=== PATIENT | male | born 1955 | race Native Hawaiian/Other Pacific Islander ===

== ENCOUNTER 2021-02-07 10:30 | Inpatient (IN) | payer OTHER ==
[2021-02-08 07:25] LABS: PLATELET COUNT 267 K/uL (142-355)
[2021-02-08 08:31] LABS: POTASSIUM 3.8 mmol/L (3.6-5.2)
== END 2021-02-21 10:30 | disposition home or self-care (01) ==
LOC: PAVC 10:30
PROVIDERS: ADMIT Internal Medicine; ATTEND Internal Medicine
DX: U07.1 COVID-19 (principal); M62.81 Muscle weakness (generalized); Z74.1 Need for assistance with personal care; R26.81 Unsteadiness on feet; I69.351 Hemiplegia and hemiparesis following cerebral infarction affecting right dominant side; I48.20 Chronic atrial fibrillation, unspecified
CPT/HCPCS: 80053; 80061; 80162; 82306; 82728; 83036; 83540; 84153; 84443; 85027; 87081

== ENCOUNTER 2021-02-19 07:07 | Outpatient (CLI) | payer OTHER | END 2021-02-19 19:20 | disposition home or self-care (01) | LOC: LAB 07:07 | PROVIDERS: ATTEND Internal Medicine | DX: I48.20 Chronic atrial fibrillation, unspecified (principal) | CPT/HCPCS: 80162 ==

== ENCOUNTER 2021-06-02 20:45 | Emergency (ER) | payer OTHER ==
[~2021-06-02] VITALS: Ht 180.3 cm; Wt 86.2 kg
[2021-06-02 21:00] VITALS: BP 130/81; TEMP 98.1
[2021-06-02 21:15] VITALS: BP 130/44
[2021-06-02 22:22] LABS: PLATELET COUNT 209 K/uL (142-355)
[2021-06-02 22:35] LABS: POTASSIUM 4.4 mmol/L (3.6-5.2)
[2021-06-02 22:50] VITALS: BP 100/45
[2021-06-02 23:30] VITALS: BP 101/52
[2021-06-03] VITALS: BP 103/49
[2021-06-03 00:30] VITALS: BP 107/71
[2021-06-03 01:10] VITALS: BP 82/54
[2021-06-03 01:30] VITALS: BP 118/49
[2021-06-03 01:39] LABS: PLATELET COUNT 202 K/uL (142-355)
[2021-06-03 03:45] LABS: PARTIAL THROMBOPLASTIN TIME > 192.0 SECONDS (24.5-33.6)
[2021-06-03 06:30] VITALS: BP 83/50; TEMP 97.9
== END 2021-06-03 06:54 | disposition short-term general hospital (02) ==
LOC: ED 20:45 → MED/SURG 06-03 00:12 → ED 06-03 06:54
PROVIDERS: Family Medicine
PROC: 0T9B70Z Drainage of Bladder with Drainage Device, Via Natural or Artificial Opening (ICD-10-PCS; principal; 2021-06-02)
PROC: 30233L1 Transfusion of Nonautologous Fresh Plasma into Peripheral Vein, Percutaneous Approach (ICD-10-PCS; 2021-06-02)
PROC: 30233N1 Transfusion of Nonautologous Red Blood Cells into Peripheral Vein, Percutaneous Approach (ICD-10-PCS; 2021-06-02)
PROC: 0BH17EZ Insertion of Endotracheal Airway into Trachea, Via Natural or Artificial Opening (ICD-10-PCS; 2021-06-02)
PROC: 5A1935Z Respiratory Ventilation, Less than 24 Consecutive Hours (ICD-10-PCS; 2021-06-02)
DX: I61.8 Other nontraumatic intracerebral hemorrhage (principal); I60.8 Other nontraumatic subarachnoid hemorrhage; Z11.52 Encounter for screening for COVID-19; E11.9 Type 2 diabetes mellitus without complications; Z79.899 Other long term (current) drug therapy; Z51.81 Encounter for therapeutic drug level monitoring
CPT/HCPCS: 36415; 36430; 36600; 51702; 80053; 80162; 81000; 82150; 82272; 82550; 82805; 82947; 83690; 84484; 85027; 85610; 85730; 86850; 86900; 86901; 86922; 87088; 87635; 93005; 96360; 96361; 96365; 96366; 96375; 99285; J0171; J0696; J1160; J1265; J1815; J2060; J2250; J2405; J2930; J3430; J3490; J7120; P9016; P9017; P9047; U0003